=== PATIENT | female | born 1935 | race Caucasian/White ===

== ENCOUNTER 2023-01-09 11:04 | Emergency (ER) | payer MEDICARE, BC ==
[~2023-01-09] VITALS: Ht 157.5 cm; Wt 80.2 kg
[2023-01-09 11:09] VITALS: BP 176/60; PULSE 86; RESP 16; TEMP 98.5; O2SAT 96
[2023-01-09] MEDS ORDERED: AMOX-117 PO (13:16)
[2023-01-09] MEDS ORDERED: NEOM10SO7 LEFT EAR (13:16)
== END 2023-01-09 13:24 | disposition home or self-care (01) ==
LOC: ER 11:04
DX: H66.002 Acute suppurative otitis media without spontaneous rupture of ear drum, left ear (principal); E78.00 Pure hypercholesterolemia, unspecified; E11.9 Type 2 diabetes mellitus without complications
CPT/HCPCS: 99283